=== PATIENT | male | born 2000 | race Hispanic/Latino ===

== ENCOUNTER 2024-07-06 14:48 | Inpatient (IN) | payer SELFPAY ==
[2024-07-06] MEDS ORDERED: cloNIDine HCL 0.1 MG TAB ONE (15:16)
[2024-07-06 15:27] LABS: Absolute Basophils 0.1 K/uL (0-0.5); Absolute Eosinophils 0.1 K/uL (0-0.5); Absolute Lymphocytes (CBC) 2.3 K/uL (0.7-4.9); Absolute Monocytes 0.8 K/uL (0.1-1.3); Absolute Neutrophil 4.8 K/uL (1.8-8.0); Basophils % 0.7 % (0-1.3); Eosinophils % 0.7 % (0-4.4); Hematocrit 44.8 % (39.6-49.0); Hemoglobin 15.4 g/dL (13.6-17.9); Lymphocytes % 28.6 % (15.3-44.8); MCH 30.7 pg (27.0-35.0); MCHC 34.4 g/dL (32.0-36.0); MCV 89.4 fL (80-100); MPV 10.1 fL (7.6-11.3); Monocytes % 10.3 % (3.3-12.3); Neutrophils % 59.7 % (41.7-73.7); Platelets 247 thou/uL (152-406); RBC Red Blood Cell Count 5.01 M/uL (4.33-5.43)
[2024-07-06 15:34] LABS: PTT, Activated Partial Thromb 36.2 SECONDS (24.3-36.9)
--- NOTE | 2024-07-06 15:34 | RAD REPORT ---
EXAM: Ct Stroke Brain Wo Cont HISTORY: STROKE ALERT COMPARISON: None TECHNIQUE: Multiple contiguous axial images were obtained for a CT of the brain without contrast. Sag ittal and coronal reformats were performed. One or more of the following dose reduction techniques were used: Automated exposure control, adjus tment of the mA and kV according to patient size, and iterative reconstruction. Unless otherwise specified, incidental findings do not require dedicated imaging follow-up. FINDINGS: No evidence of hydrocephalus, intracranial hemorrhage, or extra-axial fluid collection. The brain is normal in morphology. The calvarium is intact. The visualized paranasal sinuses and mastoid air cells are essentially clear . IMPRESSION: No evidence of acute intracranial abnormality. THIS REPORT CONTAINS FINDINGS THAT MAY BE CRITICAL TO PATIENT CARE. The findings were verbally commun icated via telephone to Jacob Wayne MD on 07/06/2024 3:29PM.
[2024-07-06] MEDS ORDERED: LABETALOL 20 MG/4ML SYRINGE IV ONE (15:38)
--- NOTE | 2024-07-06 15:45 | RAD REPORT ---
EXAMINATION: Neck Angio CLINICAL INDICATION: Male, 24 years old. BR MAIN left arm tingling TECHNIQUE: Axial CT images were obtained from the aortic arch to the skull base after intravenous con trast utilizing angiographic protocol. Multiplanar reformats, as well as 3D post-processing (maximum intensity projection images, volume rendered images and/or shaded surface rendered images) w ere generated and reviewed. One or more of the following dose reduction techniques were used: Automated exposure control, adjustment of the mA and/or kV according to patient size, and/or iterativ e reconstruction. Unless otherwise specified, incidental findings do not require dedicated imaging follow-up. COMPARISON: No prior exam. FINDINGS: AORTA: The imaged aortic arch is normal. Normal three-vessel configuration of the arch. CCA: The common carotid arteries are patent and normal in caliber. ICA/ECA: Bilateral internal and external carotid arteries are patent. There is no significant interna l carotid artery stenosis. VERTEBRAL: The cervical vertebral arteries are patent to the skull base. Vertebral arteries are codom inant. SOFT TISSUE: No significant neck soft tissue abnormalities. The visualized lung apices are clear. 3D images confirm these findings. IMPRESSION: No significant flow abnormality of the neck vessels is identified. NASCET criteria used to quantify ICA stenosis, with the following grading scheme: Mild 0-49% stenosis Moderate 50-69% stenosis Severe 70-99% stenosis Reference: [place] Symptomatic Carotid Endarterectomy Trial Collaborators; Darron FIGUEREDO, Aurora CENTENO, Gabbi RB, et al. Beneficial effect of carotid endarterectomy in symptomatic patients with high-grade carotid stenosis. N Engl J Med. 1990May 07;325(7):445-53.
[2024-07-06] MEDS ORDERED: TENECTEPLASE 50 MG/10 ML VIAL IV ONE (15:46)
--- NOTE | 2024-07-06 15:46 | RAD REPORT ---
EXAMINATION: CTA HEAD CLINICAL INDICATION: Male, 24 years old. LT ARM WEAKNESS TECHNIQUE: Axial CT images were obtained through the head after intravenous contrast utilizing angiog raphic protocol with 3D post-processing (maximum intensity projection images, volume rendered images and/or shaded surface rendered images). One or more of the following dose reduction technique s were used: Automated exposure control, adjustment of the mA and/or kV according to patient size, and/or iterative reconstruction. Unless otherwise specified, incidental findings do not require dedic ated imaging follow-up. COMPARISON: No prior exam. FINDINGS: ICA: The petrous, cavernous, and supraclinoid segments of the bilateral internal carotid arteries are normal. The ophthalmic artery origins are visualized and normal. The posterior communicating arteries are patent. C[place]: Anterior cerebral arteries are normal bilaterally. The anterior communicating artery is patent. MCA: Middle cerebral arteries are normal bilaterally. CLINICAL NURSE OCCUPATIONAL MEDICINE: Posterior cerebral arteries are normal bilaterally. Vertebrobasilar: The vertebral arteries are patent. The basilar artery is normal in appearance. 3D images confirm these findings. IMPRESSION: Normal head CTA.
[2024-07-06 15:48] LABS: Anion Gap 8.1 mEq/L (5.0-15.0); Potassium 4.1 mEq/L (3.5-5.1); Troponin High Sensitivity 3.6 pg/mL (<58.9)
[2024-07-06 15:49] LABS: PT Prothrombin Time 11.1 SECONDS (9.4-12.5); Protime INR 0.99
[2024-07-06] MEDS ORDERED: LORazepam 2 MG/ML VIAL ONE ×2 (15:59→16:50)
--- NOTE | 2024-07-06 16:29 | EDPHYS ---
Physician Documentation [facility] Name: Hernando Harman Age: 24 yrs Sex: Male : 2000 Arrival Date: 07/06/2024 Time: 14:48 Bed 25 Private MD: ED Physician Jacob Wayne HPI: 07/06 15:16 This 24 yrs old Male presents to ER via Unassigned with complaints of Arm Problem - rn left numbness, Headache, Facial tingles. 15:17 The patient's problem is reported as paresthesias, in left upper extremity, in left rn lower extremity, in left side of face. Onset: The symptoms/episode began/occurred 1 hour(s) ago. Associated signs and symptoms: Pertinent positives: headache, numbness, tingling, Pertinent negatives: weakness. Severity of symptoms: At their worst the symptoms were moderate in the emergency department the symptoms are unchanged. Patient reports was at work, began to feel anxious and "not right". Reports noticed left arm and left leg tingling as well as left facial tingling. No weakness. States has happened once before and was attributed to hypertension. Supposed to take lisinopril/HCTZ, does not take it because does not like to be on medication. Denies any chest pain or shortness of breath. No trauma or head injury. Denies any weakness. No dizziness. No vision changes. No slurred speech.. Historical: - Allergies: 15:48 No Known Allergies; tm6 - PMHx: 15:48 Hypertensive disorder; Asthma; tm6 - PSHx: 15:48 None; tm6 - Immunization history:: Client reports having NOT received the Covid vaccine. - Infectious Disease History:: Denies. - Family history:: not pertinent. - Social history:: Smoking status: Patient denies any tobacco usage or history of. Patient uses alcohol, on a daily basis. - Hospitalizations: : No recent hospitalization is reported. ROS: 15:17 Constitutional: Negative for fever, chills, and weight loss, Eyes: Negative for injury, rn pain, redness, and discharge, Neck: Negative for injury, pain, and swelling, Cardiovascular: Negative for chest pain, palpitations, and edema, Respiratory: Negative for shortness of breath, cough, wheezing, and pleuritic chest pain, Abdomen/GI: Negative for abdominal pain, nausea, vomiting, diarrhea, and constipation, Back: Negative for injury and pain, MS/Extremity: Negative for injury and deformity, Skin: Negative for injury, rash, and discoloration, Neuro: Positive for headache, positive for numbness and tingling to left side of body Exam: 15:17 Constitutional: This is a well developed, well nourished patient who is awake, alert, rn and in no acute distress. Head/Face: Normocephalic, atraumatic. Eyes: Pupils equal round and reactive to light, extra-ocular motions intact. Cardiovascular: Regular rate and rhythm. No pulse deficits. Respiratory: No increased work of breathing, no retractions or nasal flaring. MS/ Extremity: Pulses equal, no cyanosis. Neurovascular intact. Full, normal range of motion. Equal circumference. Neuro: Awake and alert, GCS 15, oriented to person, place, time, and situation. Cranial nerves II-XII grossly intact. Motor strength 5/5 in all extremities. Decreased sensation to the left side of face, slight decrease sensation to soft touch and painful stimuli of the left arm and left leg. Cerebellar exam normal. Normal gait. 16:08 ECG was reviewed by the Attending Physician. rn Vital Signs: 15:23 BP 162 / 101; Pulse 101; Resp 18; Pulse Ox 100% ; me1 15:44 BP 161 / 115; Pulse 98; me1 15:46 BP 151 / 99; Pulse 98; Resp 17; Pulse Ox 99% ; me1 15:51 Weight 86.8 kg; me1 16:00 BP 146 / 99; Pulse 99; Resp 16; Pulse Ox 99% ; me1 16:13 BP 145 / 102; Pulse 95; Resp 16; Pulse Ox 97% ; me1 16:13 BP 146 / 99; rn 16:15 BP 142 / 95; Pulse 95; Resp 16; Pulse Ox 97% on R/A; me1 16:22 BP 142 / 95; rn 16:42 BP 151 / 95; Pulse 96; rn 16:45 BP 144 / 98; Pulse 101; Resp 16; Pulse Ox 97% ; me1 17:15 BP 151 / 102; Pulse 96; Resp 16; Pulse Ox 98% ; me1 17:30 BP 138 / 98; Pulse 94; Resp 18; Pulse Ox 100% ; me1 17:45 BP 139 / 93; Pulse 87; Resp 16; Pulse Ox 98% ; me1 18:00 BP 134 / 94; Pulse 82; Resp 19; Pulse Ox 96% ; me1 18:15 BP 140 / 86; Pulse 85; Resp 19; Temp 98.4; Pulse Ox 100% ; me1 18:35 BP 134 / 94; Pulse 92; Resp 16; Temp 98.4; Pulse Ox 100% ; me1 NIH Stroke Scale Scores: 15:00 NIHSS Score: 1 wa1 15:16 NIHSS Score: 1 rn 18:35 NIHSS Score: 0 [facility] [place]DM: 14:53 Medical Screening Exam initiated rn 15:21 ED course: Code stroke called by nursing staff, patient sent to CT to obtain CT head rn and CT angio head and neck. Patient is very hypertensive, diastolic blood pressure of 116 on initial vital signs. Clonidine ordered.. 15:46 ED course: Consulted Dr. Parks, states that because he has unilateral symptoms, rn young age, NIH score above 0 he recommends giving TNK the patient for possible CVA. Blood pressure has come down to a diastolic of 101. 5 mg labetalol ordered for additional control and TNK ordered after patient was consented. Family member in the room for consent as well as other nursing staff, patient verbally consents and signed consent. Patient understands risk of bleeding and other risks of TNK administration including life-threatening problems, , and requiring admission to the hospital.. 16:01 ED course: Ordered TNK administration per Dr. Parks's recommendation, there has been rn a delay in administration due to patient's hypertension, has come down a bit but has rebounded back over 100 diastolic. After further discussion with patient patient drinks 12-20 beers a day last drink was yesterday, likely also experiencing alcohol withdrawal further pushing up his blood pressure and causing tachycardia. IV Ativan ordered for partial withdrawal and will reevaluate his blood pressure. When his blood pressure is below 105 diastolic forearm multiple reads we will administer TNK.. 16:24 ED course: We now have 5 blood pressures in a row under diastolic of 105 over the last rn 24 minutes, patient has improved with Ativan and labetalol. Last blood pressure is 142/95, patient reports still feeling tingling on the left side of the body. Will administer TNK and closely monitor blood pressure.. 16:24 Differential diagnosis: CVA, TIA, metabolic disorder, Complicated migraine, alcohol rn withdrawal. TNKase (Tenecteplase) Screening: Indications: Definite evidence of stroke, ischemic, embolic, or hypertensive: Yes. Treatment will start within 4.5 hours onset of symptoms: Yes. No evidence of intracranial hemorrhage or CT of head and no evidence of peripheral hemorrhage or recent CVA: Yes. Consent for thrombolytic therapy: Yes. Data reviewed: vital signs, nurses notes, lab test result(s), EKG, radiologic studies, CT scan, and as a result, I will admit patient. Care significantly affected by the following chronic conditions: Hypertension. Counseling: I had a detailed discussion with the patient and/or guardian regarding the historical points, exam findings, and any diagnostic results supporting the discharge/admit diagnosis, lab results, radiology results, the need for further work-up and treatment in the hospital. ED course: I personally spent 35 minutes engaged in work directly related to the individual patient's care. This does not include any time spent performing procedures. The patient has been deemed critically ill because of possibility of acute cerebral infarct, hypertension requiring multiple IV doses of medication for control in anticipation of TNK administration, TNK administration and organization of hospitalization. 16:51 ED course: Patient states still feels anxious, overall vital signs have improved as rn well as numbness after TNK and Ativan administration, will give 0.5 mg Ativan IV to obtain MRI given patient reports feels claustrophobic. Patient drinks 12-20 beers a day, can easily handle 1.5 mg of Ativan.. 17:38 ED course: Tingling has resolved. Current repeat NIH is 0. rn 07/06 15:06 Order name: Basic Metabolic Panel; Complete Time: 15:54 rn 07/06 15:06 Order name: CBC with Diff; Complete Time: 15:54 rn 07/06 15:06 Order name: High Sensitivity Troponin; Complete Time: 15:54 rn 07/06 15:06 Order name: Protime (+inr); Complete Time: 15:54 rn 07/06 15:06 Order name: Ptt, Activated; Complete Time: 15:54 rn 07/06 15:46 Order name: Glucose, Ancillary Testing; Complete Time: 15:54 EDMS 07/06 16:43 Order name: LFT's; Complete Time: 17:08 la1 07/06 15:06 Order name: CT Neck Angio; Complete Time: 15:54 rn 07/06 15:06 Order name: CT Stroke Brain w/o Contrast rn 07/06 15:12 Order name: Head angio; Complete Time: 15:54 EDMS 07/06 17:19 Order name: Brain Wo Cont EDMS 07/06 15:06 Order name: Accucheck; Complete Time: 16:21 rn 07/06 15:06 Order name: Cardiac monitoring; Complete Time: 15:40 rn 07/06 15:06 Order name: EKG - Nurse/Tech; Complete Time: 15:40 rn 07/06 15:06 Order name: IV Saline Lock; Complete Time: 15:26 rn 07/06 15:06 Order name: Labs collected and sent; Complete Time: 15:26 rn 07/06 15:06 Order name: O2 Per Protocol; Complete Time: 15:26 rn 07/06 15:06 Order name: O2 Sat Monitoring; Complete Time: 15:26 rn 07/06 15:06 Order name: Stroke Swallow Screen; Complete Time: 15:26 rn EC:08 Rate is 107 beats/min. Rhythm is regular. QRS [place] is Normal. IA interval is normal. rn QRS interval is normal. QT interval is normal. No Q waves. T waves are Normal. No ST changes noted. Clinical impression: Sinus tachycardia. Interpreted by me. Reviewed by me. Administered Medications: 15:24 Drug: cloNIDine PO 0.1 mg PO once Route: PO; hb 16:03 Follow up: Response: No adverse reaction; Blood pressure is lowered me1 15:40 Drug: Labetalol IV 5 mg IV at calculated rate once Route: IV; Rate: calculated rate; me1 Site: right antecubital; 16:38 Follow up: Response: No adverse reaction; Blood pressure is lowered; IV Status: me1 Completed infusion 15:56 Drug: Labetalol IV 5 mg IV at calculated rate once Route: IV; Rate: calculated rate; me1 Site: right antecubital; 16:38 Follow up: Response: Blood pressure is lowered; IV Status: Completed infusion me1 16:03 Drug: Ativan IVP 1 mg IVP once Route: IVP; Site: right antecubital; me1 16:39 Follow up: Response: No adverse reaction; Anxiety decreased me1 16:30 Drug: TNK FOR STROKE - Tenecteplase IV (Administer 10 ml NS flush BEFORE and me1 AFTER tenecteplase) 0.25 mg/kg IV at per protocol once; 0.25mg/kg, MAX DOSE 25 mg, IVP over 5 seconds {Co-Signature: hb (Winsome Lawrence RN).} Route: IV; Rate: per protocol; Site: left antecubital; 16:54 Follow up: IV Status: Completed infusion me1 16:54 Drug: Ativan IVP 0.5 mg IVP once Route: IVP; Site: right antecubital; me1 17:18 Follow up: Response: No adverse reaction; Anxiety decreased me1 Disposition Summary: 07/06/24 16:28 Hospitalization Ordered Notes: Hospitalization Status: Inpatient Admission rn Provider: Aron Wayne rn Location: Intensive Care Unit rn Condition: Stable rn Problem: new rn Symptoms: have improved rn Bed/Room Type: Standard rn Room Assignment: 2-(07/06/24 18:09) am7 Diagnosis - Paresthesia of skin rn - Alcohol dependence with withdrawal, unspecified rn - Essential (primary) hypertension rn Forms: - Medication Reconciliation Form rn - SBAR form rn - Leadership Thank You Letter pattern checker time excluding procedures: 16:24 Critical care time: Bedside Care: 30 minutes, Consultation: 5 minutes. Total time: 35 rn minutes NIH Stroke Scale - NIH Stroke Score Date: 07/06/2024 Time: 15:00 Total Score = 1 10. Dysarthria (speech clarity - read or repeat words) - 0(Normal) 11. Extinction and Inattention (visual/tactile/auditory/spatial/personal) - 0(No abnormality) 1a. Level of Consciousness (LOC) - 0(Alert) 1b. Level of Consciousness (LOC) (Month \\T\\ Age) - 0(Both) 1c. LOC Commands (Open \\T\\ Closes Eyes/Size Cutter) - 0(Both) 2. Best Gaze (Lateral Gaze Paresis) - 0(Normal) 3. Visual Field Loss - 0(No visual loss) 4. Facial Palsy - 0(Normal) 5a. Left Arm: Motor (10-second hold) - 0(No drift) 5b. Right Arm: Motor (10-second hold) - 0(No drift) 6a. Left Leg: Motor (5-second hold - always test supine) - 0(No drift) 6b. Right Leg: Motor (5-second hold - always test supine) - 0(No drift) 7. Limb Ataxia (finger/nose \\T\\ heel/reddy - test with eyes open) - 0(Absent) 8. Sensory Loss (pinprick arms/legs/face) - 1(Mild to moderate loss) 9. Best Language: Aphasia (description/naming/reading) - 0(No aphasia) Initials: me1 NIH Stroke Scale - NIH Stroke Score Date: 07/06/2024 Time: 15:16 Total Score = 1 10. Dysarthria (speech clarity - read or repeat words) - 0(Normal) 11. Extinction and Inattention (visual/tactile/auditory/spatial/personal) - 0(No abnormality) 1a. Level of Consciousness (LOC) - 0(Alert) 1b. Level of Consciousness (LOC) (Month \\T\\ Age) - 0(Both) 1c. LOC Commands (Open \\T\\ Closes Eyes/Size Cutter) - 0(Both) 2. Best Gaze (Lateral Gaze Paresis) - 0(Normal) 3. Visual Field Loss - 0(No visual loss) 4. Facial Palsy - 0(Normal) 5a. Left Arm: Motor (10-second hold) - 0(No drift) 5b. Right Arm: Motor (10-second hold) - 0(No drift) 6a. Left Leg: Motor (5-second hold - always test supine) - 0(No drift) 6b. Right Leg: Motor (5-second hold - always test supine) - 0(No drift) 7. Limb Ataxia (finger/nose \\T\\ heel/reddy - test with eyes open) - 0(Absent) 8. Sensory Loss (pinprick arms/legs/face) - 1(Mild to moderate loss) 9. Best Language: Aphasia (description/naming/reading) - 0(No aphasia) Initials: rn NIH Stroke Scale - NIH Stroke Score Date: 07/06/2024 Time: 18:35 Total Score = 0 10. Dysarthria (speech clarity - read or repeat words) - 0(Normal) 11. Extinction and Inattention (visual/tactile/auditory/spatial/personal) - 0(No abnormality) 1a. Level of Consciousness (LOC) - 0(Alert) 1b. Level of Consciousness (LOC) (Month \\T\\ Age) - 0(Both) 1c. LOC Commands (Open \\T\\ Closes Eyes/Size Cutter) - 0(Both) 2. Best Gaze (Lateral Gaze Paresis) - 0(Normal) 3. Visual Field Loss - 0(No visual loss) 4. Facial Palsy - 0(Normal) 5a. Left Arm: Motor (10-second hold) - 0(No drift) 5b. Right Arm: Motor (10-second hold) - 0(No drift) 6a. Left Leg: Motor (5-second hold - always test supine) - 0(No drift) 6b. Right Leg: Motor (5-second hold - always test supine) - 0(No drift) 7. Limb Ataxia (finger/nose \\T\\ heel/reddy - test with eyes open) - 0(Absent) 8. Sensory Loss (pinprick arms/legs/face) - 0(Normal) 9. Best Language: Aphasia (description/naming/reading) - 0(No aphasia) Initials: me1 Signatures: Dispatcher [employer] EDMS Jacob Wayne MD MD rn Baxter, Heather, RN RN Elissa Kramer RN RN me1 Hailee Mujica RN RN tm6 Pinky Fishman am7 Winsome Lawrence RN hb Corrections: (The following items were deleted from the chart) 15:06 15:06 Neck Angio+CT.RAD.BRZ ordered. EDMS EDMS 15:06 15:06 CT-STROKE BRAIN W/O CONTRAST+CT.RAD.BRZ ordered. EDMS EDMS 16:44 16:44 HEPATIC FUNCTION+C.LAB.BRZ ordered. EDMS EDMS 17:19 15:35 Brain With Cont ordered. EDMS EDMS 18:09 16:28 rn am7
--- NOTE | 2024-07-06 16:29 | ER ---
Nurse's Notes [facility] Name: Hernando Harman Age: 24 yrs Sex: Male : 2000 Arrival Date: 07/06/2024 Time: 14:48 Bed 25 Private MD: Diagnosis: Paresthesia of skin;Alcohol dependence with withdrawal, unspecified;Essential (primary) hypertension Presentation: 07/06 14:56 Chief complaint: Patient states: about 1 hour ago I got left arm numbness, left foot tm6 numbness, and the left side of my face (episcopal area) started to tingle. About 30 min ago my head started to hurt. Coronavirus screen: Client denies travel out of the [place] in the last 14 days. Ebola Screen: Patient negative for fever greater than or equal to 101.5 degrees Fahrenheit, and additional compatible Ebola Virus Disease symptoms Patient denies exposure to infectious person. Patient denies travel to an Ebola-affected area in the 21 days before illness onset. No symptoms or risks identified at this time. Initial Sepsis Screen: Does the patient meet any 2 criteria? No. Patient's initial sepsis screen is negative. Does the patient have a suspected source of infection? No. Patient's initial sepsis screen is negative. Risk Assessment: Do you want to hurt yourself or someone else? Patient reports no desire to harm self or others. Onset of symptoms was July 06, 2024 at 13:00. 14:56 Method Of Arrival: Ambulatory tm6 14:56 Acuity: HORACIO 2 tm6 Triage Assessment: 14:56 Headache History: The patient has had previous headaches. General: Appears in no tm6 apparent distress. Behavior is calm, cooperative. Pain: Complains of pain in head Pain currently is 5 out of 10 on a pain scale. Pain began 30 min ago. Also complains of no other associated symptoms. EENT: No signs and/or symptoms were reported regarding the EENT system. Neuro: Level of Consciousness is awake, alert, obeys commands, Oriented to person, place, time, situation, Reports headache since 1330 numbness in left foot and left arm since 1300 paresthesias in left episcopal since 1300. Cardiovascular: Patient's skin is warm and dry. Respiratory: Airway is patent Respiratory effort is even, unlabored, Respiratory pattern is regular, symmetrical. GI: No signs and/or symptoms were reported involving the gastrointestinal system. Abdomen is flat, non-distended. : No signs and/or symptoms were reported regarding the genitourinary system. Derm: No signs and/or symptoms reported regarding the dermatologic system. Musculoskeletal: Reports numbness in left foot and left arm since 1300. Historical: - Allergies: 15:48 No Known Allergies; tm6 - PMHx: 15:48 Hypertensive disorder; Asthma; tm6 - PSHx: 15:48 None; tm6 - Immunization history:: Client reports having NOT received the Covid vaccine. - Infectious Disease History:: Denies. - Family history:: not pertinent. - Social history:: Smoking status: Patient denies any tobacco usage or history of. Patient uses alcohol, on a daily basis. - Hospitalizations: : No recent hospitalization is reported. Screenin:00 [facility] ED Fall Risk Assessment (Adult) History of falling in the last 3 months, me1 including since admission No falls in past 3 months (0 pts) Confusion or Disorientation No (0 pts) Intoxicated or Sedated No (0 pts) Impaired Gait No (0 pts) Mobility Assist Device Used No (0 pt) Altered Elimination No (0 pt) Score/Fall Risk Level 0 - 2 = Low Risk Maintained a safe environment, Provided non-skid footwear, Hourly rounding (assess needs \T\ fall precautionary measures) done. Abuse screen: Denies threats or abuse. Nutritional screening: No deficits noted. Tuberculosis screening: No symptoms or risk factors identified. 15:00 VAN Screening: Arm Drift: Patient shows no arm weakness. Patient is VAN negative. me1 Visual Disturbance: No visual disturbance noted. Aphasia: No aphasia noted. Neglect: No neglect noted. 15:20 [place] Swallow Protocol Exclusion Criteria: Unable to remain alert for testing: No NPO me1 for medical/surgical reason by provider order No Tracheostomy tube present No No thin liquids due to preexisting dysphagia/baseline modified diet thickened liquids No Brief Cognitive Screen What is your name? Normal, Where are you right now? Normal, What year is it? Normal. Oral Mechanism Examination Facial Symmetry: Normal, Motion: Normal, Lip Closure: Normal, Oral Mechanism Result: Normal. 3 oz Water Swallow Challenge: Pt able to drink all water without stopping, coughing, choking or throat clearing: Yes Result: CAREY MILLS Notified: Jacob Wayne MD. Assessment: 15:00 General: Appears comfortable, well groomed, well developed, well nourished, Behavior is me1 calm, cooperative, appropriate for age, Reports headache, left sided facial tingles and L arm and L leg tingles. Pain: Complains of pain in face Pain does not radiate. Pain currently is 4 out of 10 on a pain scale. Quality of pain is described as aching, Pain began gradually, Is continuous. Neuro: Level of Consciousness is awake, alert, obeys commands, Oriented to person, place, time, situation, Appropriate for age Flexboard Operator are equal bilaterally Moves all extremities. Full function Gait is steady, Speech is normal, Facial symmetry appears normal, Pupils are PERRLA, Pupil Size: 3 Tingling in left side of head, left arm and left leg Reports headache in left tingling to left face, left arm and left leg. Cardiovascular: Patient's skin is warm and dry. Respiratory: Airway is patent Respiratory effort is even, unlabored, Respiratory pattern is regular, symmetrical. GI: No signs and/or symptoms were reported involving the gastrointestinal system. : No signs and/or symptoms were reported regarding the genitourinary system. EENT: No signs and/or symptoms were reported regarding the EENT system. Derm: Skin is intact, is healthy with good turgor, Skin is pink, warm \T\ dry. Musculoskeletal: Reports tingling to left arm and left leg. 15:05 Reassessment: CODE STROKE CALLED, PT TO CT VIA STRETCHER WITH ELISSA AVILA. hb 15:20 [place] Swallow Protocol Exclusion Criteria: Unable to remain alert for testing: No NPO me1 for medical/surgical reason by provider order No Head-of-bed restricted <30 degrees Tracheostomy tube present No No thin liquids due to preexisting dysphagia/baseline modified diet thickened liquids No Exclusion Criteria Result: Proceed Brief Cognitive Screen What is your name? Normal, Where are you right now? Normal, What year is it? Normal. Oral Mechanism Examination Facial Symmetry: Normal, Motion: Normal, Lip Closure: Normal, 3 oz Water Swallow Challenge: Pt able to drink all water without stopping, coughing, choking or throat clearing: Yes Result: CAREY MILLS Notified: Jacob Wayne MD. TNKase (Tenecteplase) Screening: Indications: Definite evidence of stroke, ischemic, embolic, or hypertensive: Yes. Treatment will start within 4.5 hours onset of symptoms: Yes. No evidence of intracranial hemorrhage or CT of head and no evidence of peripheral hemorrhage or recent CVA: No. Consent for thrombolytic therapy: Yes. Contraindications:. Vital Signs: 15:23 BP 162 / 101; Pulse 101; Resp 18; Pulse Ox 100% ; me1 15:44 BP 161 / 115; Pulse 98; me1 15:46 BP 151 / 99; Pulse 98; Resp 17; Pulse Ox 99% ; me1 15:51 Weight 86.8 kg; me1 16:00 BP 146 / 99; Pulse 99; Resp 16; Pulse Ox 99% ; me1 16:13 BP 145 / 102; Pulse 95; Resp 16; Pulse Ox 97% ; me1 16:13 BP 146 / 99; rn 16:15 BP 142 / 95; Pulse 95; Resp 16; Pulse Ox 97% on R/A; me1 16:22 BP 142 / 95; rn 16:42 BP 151 / 95; Pulse 96; rn 16:45 BP 144 / 98; Pulse 101; Resp 16; Pulse Ox 97% ; me1 17:15 BP 151 / 102; Pulse 96; Resp 16; Pulse Ox 98% ; me1 17:30 BP 138 / 98; Pulse 94; Resp 18; Pulse Ox 100% ; me1 17:45 BP 139 / 93; Pulse 87; Resp 16; Pulse Ox 98% ; me1 18:00 BP 134 / 94; Pulse 82; Resp 19; Pulse Ox 96% ; me1 18:15 BP 140 / 86; Pulse 85; Resp 19; Temp 98.4; Pulse Ox 100% ; me1 18:35 BP 134 / 94; Pulse 92; Resp 16; Temp 98.4; Pulse Ox 100% ; me1 NIH Stroke Scale Scores: 15:00 NIHSS Score: 1 me1 15:16 NIHSS Score: 1 rn 18:35 NIHSS Score: 0 ky1 ED Course: 14:50 Patient arrived in ED. im 14:53 Jacob Wayne MD is Attending Physician. rn 14:56 Arm band placed on right wrist. tm6 15:00 No provider procedures requiring assistance completed. me1 15:00 Patient has correct armband on for positive identification. Bed in low position. Call [facility] [place] in reach. Side rails up X 1. Provided Education on: POC. Verbalized understanding. . Client placed on continuous cardiac and pulse oximetry monitoring. NIBP monitoring applied. hall monitor on. Pulse ox on. NIBP on. 15:13 Initial lab(s) drawn, by me, sent to lab. Inserted saline lock: 22 gauge in right me1 antecubital area, using aseptic technique. 15:17 CT Stroke Brain w/o Contrast In Process Unspecified. EDMS 15:24 CT Neck Angio In Process Unspecified. EDMS 15:24 Head angio In Process Unspecified. EDMS 15:25 Elissa Kramer, RN is Primary Nurse. me1 15:26 Basic Metabolic Panel Sent. me1 15:26 CBC with Diff Sent. me1 15:26 High Sensitivity Troponin Sent. me1 15:26 Protime (+inr) Sent. me1 15:26 Ptt, Activated Sent. me1 15:41 EKG done, by ED staff, reviewed by Jacob Wayne MD. me1 15:48 Triage completed. tm6 15:56 Inserted saline lock: 20 gauge in left antecubital area, using aseptic technique. me1 16:28 Aron Wayne MD is Hospitalizing Provider. rn 16:54 LFT's Sent. me1 16:55 Patient moved to MRI via wheelchair. me1 17:19 Brain Wo Cont In Process Unspecified. EDMS 18:18 Patient admitted, IV remains in place. me1 Administered Medications: 15:24 Drug: cloNIDine PO 0.1 mg PO once Route: PO; hb 16:03 Follow up: Response: No adverse reaction; Blood pressure is lowered me1 15:40 Drug: Labetalol IV 5 mg IV at calculated rate once Route: IV; Rate: calculated rate; ky1 Site: right antecubital; 16:38 Follow up: Response: No adverse reaction; Blood pressure is lowered; IV Status: me1 Completed infusion 15:56 Drug: Labetalol IV 5 mg IV at calculated rate once Route: IV; Rate: calculated rate; ky1 Site: right antecubital; 16:38 Follow up: Response: Blood pressure is lowered; IV Status: Completed infusion me1 16:03 Drug: Ativan IVP 1 mg IVP once Route: IVP; Site: right antecubital; me1 16:39 Follow up: Response: No adverse reaction; Anxiety decreased me1 16:30 Drug: TNK FOR STROKE - Tenecteplase IV (Administer 10 ml NS flush BEFORE and me1 AFTER tenecteplase) 0.25 mg/kg IV at per protocol once; 0.25mg/kg, MAX DOSE 25 mg, IVP over 5 seconds {Co-Signature: jae (Winsome Lawrence RN).} Route: IV; Rate: per protocol; Site: left antecubital; 16:54 Follow up: IV Status: Completed infusion me1 16:54 Drug: Ativan IVP 0.5 mg IVP once Route: IVP; Site: right antecubital; me1 17:18 Follow up: Response: No adverse reaction; Anxiety decreased me1 Medication: 15:00 VIS not applicable for this client. me1 Outcome: 16:28 Decision to Hospitalize by Provider. rn 18:18 Admitted to ICU accompanied by nurse, via stretcher, room -2, on monitor, with chart, me1 Report called to AUSTIN Upton 18:18 Condition: stable 18:18 Instructed on the need for admit, 18:36 Patient left the ED. jae NIH Stroke Scale - NIH Stroke Score Date: 07/06/2024 Time: 15:00 Total Score = 1 10. Dysarthria (speech clarity - read or repeat words) - 0(Normal) 11. Extinction and Inattention (visual/tactile/auditory/spatial/personal) - 0(No abnormality) 1a. Level of Consciousness (LOC) - 0(Alert) 1b. Level of Consciousness (LOC) (Month \T\ Age) - 0(Both) 1c. LOC Commands (Open \T\ Closes Eyes/Blood Donor Recruiter Supervisor) - 0(Both) 2. Best Gaze (Lateral Gaze Paresis) - 0(Normal) 3. Visual Field Loss - 0(No visual loss) 4. Facial Palsy - 0(Normal) 5a. Left Arm: Motor (10-second hold) - 0(No drift) 5b. Right Arm: Motor (10-second hold) - 0(No drift) 6a. Left Leg: Motor (5-second hold - always test supine) - 0(No drift) 6b. Right Leg: Motor (5-second hold - always test supine) - 0(No drift) 7. Limb Ataxia (finger/nose \T\ heel/reddy - test with eyes open) - 0(Absent) 8. Sensory Loss (pinprick arms/legs/face) - 1(Mild to moderate loss) 9. Best Language: Aphasia (description/naming/reading) - 0(No aphasia) Initials: me1 NIH Stroke Scale - NIH Stroke Score Date: 07/06/2024 Time: 15:16 Total Score = 1 10. Dysarthria (speech clarity - read or repeat words) - 0(Normal) 11. Extinction and Inattention (visual/tactile/auditory/spatial/personal) - 0(No abnormality) 1a. Level of Consciousness (LOC) - 0(Alert) 1b. Level of Consciousness (LOC) (Month \T\ Age) - 0(Both) 1c. LOC Commands (Open \T\ Closes Eyes/Blood Donor Recruiter Supervisor) - 0(Both) 2. Best Gaze (Lateral Gaze Paresis) - 0(Normal) 3. Visual Field Loss - 0(No visual loss) 4. Facial Palsy - 0(Normal) 5a. Left Arm: Motor (10-second hold) - 0(No drift) 5b. Right Arm: Motor (10-second hold) - 0(No drift) 6a. Left Leg: Motor (5-second hold - always test supine) - 0(No drift) 6b. Right Leg: Motor (5-second hold - always test supine) - 0(No drift) 7. Limb Ataxia (finger/nose \T\ heel/reddy - test with eyes open) - 0(Absent) 8. Sensory Loss (pinprick arms/legs/face) - 1(Mild to moderate loss) 9. Best Language: Aphasia (description/naming/reading) - 0(No aphasia) Initials: rn NIH Stroke Scale - NIH Stroke Score Date: 07/06/2024 Time: 18:35 Total Score = 0 10. Dysarthria (speech clarity - read or repeat words) - 0(Normal) 11. Extinction and Inattention (visual/tactile/auditory/spatial/personal) - 0(No abnormality) 1a. Level of Consciousness (LOC) - 0(Alert) 1b. Level of Consciousness (LOC) (Month \T\ Age) - 0(Both) 1c. LOC Commands (Open \T\ Closes Eyes/Blood Donor Recruiter Supervisor) - 0(Both) 2. Best Gaze (Lateral Gaze Paresis) - 0(Normal) 3. Visual Field Loss - 0(No visual loss) 4. Facial Palsy - 0(Normal) 5a. Left Arm: Motor (10-second hold) - 0(No drift) 5b. Right Arm: Motor (10-second hold) - 0(No drift) 6a. Left Leg: Motor (5-second hold - always test supine) - 0(No drift) 6b. Right Leg: Motor (5-second hold - always test supine) - 0(No drift) 7. Limb Ataxia (finger/nose \T\ heel/reddy - test with eyes open) - 0(Absent) 8. Sensory Loss (pinprick arms/legs/face) - 0(Normal) 9. Best Language: Aphasia (description/naming/reading) - 0(No aphasia) Initials: ky1 Signatures: Dispatcher [employer] EDMS Jacob Wayne MD MD rn Baxter, Heather, RN RN Tracy Styles Michelle, RN RN ky1 Hailee Mujica RN RN [facility] Winsome Lawrence RN Corrections: (The following items were deleted from the chart) 16:21 16:13 BP 145 / 102; Pulse 95bpm; me1 ky1 16:37 14:56 Acuity: HORACIO 3 tm6 tm6
[2024-07-06 17:06] LABS: ALT/SGPT 121 U/L (16-61); AST/SGOT 60 U/L (15-37); Albumin 4.2 g/dL (3.4-5.0); Albumin/Globulin Ratio 1.1 (1.1-1.8); Alkaline Phosphatase 131 U/L (45-117); Bilirubin Direct < 0.2 mg/dL (0-0.2); Bilirubin Indirect, Calculated 0.2 mg/dL (0.2-0.8); Bilirubin Total 0.4 mg/dL (0.2-1.0); Globulin 3.9 g/dL (2.3-3.5); Protein, Total 8.1 g/dL (6.4-8.2)
--- NOTE | 2024-07-06 17:50 | P.HP ---
Certification for Inpatient Patient admitted to: Inpatient With expected LOS: >2 Midnights Patient will require the following post-hospital care: None Practitioner: I am a practitioner with admitting privileges, knowledge of patient current condition, hospital course, and medical plan of care. Services: Services provided to patient in accordance with Admission requirements found in Title 42 Section 412.3 of the Code of Federal Regulations Patient History Date of Service: 07/06/24 Reason for admission: Rule out CVA S/P TNK History of Present Illness: 24-year-old male with history of hypertension, alcohol use disorder presents the emergency department chief complaint of left-sided paresthesias/tingling which began around 1300 today associated with a headache. Was evaluated in the emergency department as labs are significant for AST of 60 ALT 121 alk phos 131 glucose [address] head without contrast as well as CTA of the head and neck were negative for acute findings. ED physician discussed case with neurology who recommended patient receive TNK. Initially patient's blood pressure was elevated which slightly delayed TNK but he was g iven labetalol and his blood pressure improved. TNK was administered at 1630. MRI has also been performed, pending result. Patient's NIH score is currently a 1, he has some decreased sensation to the left side of his face. He was previously having paresthesias decreased sensation to his left upper and lower extremity as well as the left side of his face. This has improved. Patient also admits to drinking around a 12 pack/day for the last year, cannot remember time he is gone more than a day or 2 without drinking. He was given 0.5 mg of Ativan in the ER, last drink was on 07/05/2024 at around 2300. - Past Medical/Surgical History -: hypertension -: none Psychosocial/ Personal History: Lives at home with family - Social History Alcohol use: Yes CD- Drugs: No Caffeine use: Yes Place of Residence: Home Review of Systems 10-point ROS is otherwise unremarkable Neurological: Numbness, As per HPI Physical Examination - Physical Exam General: Alert, In no apparent distress, Oriented x3 HEENT: Atraumatic, PERRLA, EOMI Neck: Supple, 2+ carotid pulse no bruit, No LAD, Without JVD or thyroid abnormality Respiratory: Clear to auscultation bilaterally, Normal air movement Cardiovascular: Regular rate/rhythm, Normal S1 S2 Gastrointestinal: Normal bowel sounds Musculoskeletal: No tenderness Integumentary: No rashes Neurological: Normal speech, Normal strength at 5/5 x4 extr, Normal tone, Other (NIH score is 1), Abnormal sensation (Decreased sensation/tingling to left side of face) - Studies Laboratory Data (last 24 hrs) 07/06/24 07/06/24 07/06/24 15:14 15:14 15:14 WBC 8.00 Hgb 15.4 Hct 44.8 Plt Count 247 PT 11.1 INR 0.99 APTT 36.2 Sodium Potassium BUN Creatinine Glucose Total Bilirubin 0.4 AST 60 H ALT 121 H Alkaline Phosphatase 131 H 07/06/24 15:14 WBC Hgb Hct Plt Count PT INR APTT Sodium 136 Potassium 4.1 BUN 10 Creatinine 0.98 Glucose 115 H Total Bilirubin AST ALT Alkaline Phosphatase Assessment and Plan - Plan Assessment: Paresthesias, decreased sensation left-sided/CVA S/P TNK Hypertensive urgency Alcohol use disorder Plan: Paresthesias, decreased sensation left-sided/CVA S/P TNK Hypertensive urgency Received TNK 07/06/[address] without contrast and angios negative for acute findings/LVO MRI pending NIH score 1 currently only with left facial decreased sensation/tingling Admit to ICU, never required Cardene drip for elevated blood pressures Maintain blood pressure less than 180/105 for 24 hours after TNK No aspirin/antiplatelet/anticoagulation until after 07/[address] head without contrast 1630 no difficulty with speech or ambulation, no consult for speech therapy or PT currently place Alcohol use disorder Alcohol withdrawal assessments As needed benzodiazepines Drink around 12 pack/day of beer last drink 07/05/2024 at 2300 Monitor LFTs daily DVT PPX: SCD-no aspirin, antiplatelet or anticoagulation until 07/07 after 1630, patient received TNK Code status: Full Discharge Plan: Home Plan to discharge in: 48 Hours - Advance Directives Does patient have a Living Will: No Does patient have a Durable POA for Healthcare: No - Code Status/Comfort Care Code Status Assessed: Yes (Full code) Critical Care: No Time Spent Managing Pts Care (In Minutes): 68
--- NOTE | 2024-07-06 18:16 | RAD REPORT ---
EXAMINATION: MRI BRAIN WITHOUT CONTRAST CLINICAL INDICATION: Male, 24 years old.[facility] N r/o stroke er 25 TECHNIQUE: Multiplanar multisequence MR images of the brain were obtained without intravenous contras t. Unless otherwise specified, incidental findings do not require dedicated imaging follow-up. COMPARISON: Head CT and CT angiogram of the same day FINDINGS: INTRACRANIAL: Midline structures are unremarkable. Diffusion-weighted images show no acute or early subacute infarction. No abnormal brain parenchymal signal. The ventricles are normal in size and morphology. No augmented susceptibility signal abnormality. There is no mass effect or midline shift. No abnormal extraaxial fluid collection. VASCULATURE: Normal signal voids in the larger intracranial arteries and dural venous sinuses. SINUSES: The paranasal sinuses and mastoid air cells are predominantly clear. BONE: The marrow signal pattern is within normal limits. IMPRESSION: No significant intracranial abnormalities.
[2024-07-06] MEDS ORDERED: HYDRALAZINE HCL 20 MG/ML VIAL IV PRN (19:18)
[2024-07-06] MEDS ORDERED: Nicardipine/NS 25 MG/250 ML KIT IV SCH (19:18)
[2024-07-06] MEDS ORDERED: ONDANSETRON 4 MG/2 ML VIAL IV PRN (19:18)
[2024-07-06] MEDS ORDERED: LORazepam 2 MG/ML VIAL IV PRN (19:18)
[2024-07-06] MEDS: ATORVASTATIN 20 MG TAB PO SCH (21:14)
[2024-07-07 00:41] VITALS: O2SAT 98
[2024-07-07 05:32] LABS: Absolute Basophils 0.1 K/uL (0-0.5); Absolute Eosinophils 0.2 K/uL (0-0.5); Absolute Lymphocytes (CBC) 2.7 K/uL (0.7-4.9); Absolute Monocytes 0.7 K/uL (0.1-1.3); Absolute Neutrophil 3.7 K/uL (1.8-8.0); Basophils % 1.1 % (0-1.3); Eosinophils % 2.3 % (0-4.4); Hematocrit 42.7 % (39.6-49.0); Hemoglobin 15.1 g/dL (13.6-17.9); Lymphocytes % 37.1 % (15.3-44.8); MCH 31.3 pg (27.0-35.0); MCHC 35.3 g/dL (32.0-36.0); MCV 88.7 fL (80-100); Monocytes % 9.4 % (3.3-12.3); Neutrophils % 50.1 % (41.7-73.7); Platelets 225 thou/uL (152-406); RBC Red Blood Cell Count 4.81 M/uL (4.33-5.43); Red Cell Distribution Width 12.9 % (12.1-15.2)
[2024-07-07 05:46] VITALS: BMI 29.9
[2024-07-07 06:42] LABS: ALT/SGPT 101 U/L (16-61); AST/SGOT 44 U/L (15-37); Albumin 3.5 g/dL (3.4-5.0); Albumin/Globulin Ratio 0.9 (1.1-1.8); Alkaline Phosphatase 98 U/L (45-117); Anion Gap 8.6 mEq/L (5.0-15.0); BUN Blood Urea Nitrogen 10 mg/dL (7-18); Bicarbonate 28 mEq/L (21-32); Bilirubin Total 0.8 mg/dL (0.2-1.0); Globulin 3.8 g/dL (2.3-3.5); Glomerular Filtration Rate 104 ml/min (=/>90); Glucose Level 97 mg/dL (74-106); HDL Cholesterol 38 mg/dL (40-60); Potassium 3.6 mEq/L (3.5-5.1); Protein, Total 7.3 g/dL (6.4-8.2); Sodium Level 137 mEq/L (136-145)
[2024-07-07 06:53] LABS: LDL, Direct 86 mg/dL (100-129)
[2024-07-07 08:23] LABS: Blood Morphology Comment NOT SEEN (NOT SEEN); Platelet Estimate ADEQ; White Blood Cell Scan OK (OK)
[2024-07-07] MEDS: FOLIC ACID 1 MG TABLET PO SCH (08:24)
[2024-07-07] MEDS: THIAMINE HCL 100 MG TABLET PO SCH (08:24)
--- NOTE | 2024-07-07 09:51 | RAD REPORT ---
EXAM: CT brain without contrast HISTORY: Numbness COMPARISON: July 06, 2024 TECHNIQUE: Multiple contiguous axial images were obtained and a CT of the brain without contrast. Sagittal and coronal reformats were performed. Automated exposure control, adjustment of the mA and/or kV according to patient size, and/or itera tive reconstruction. Unless otherwise specified, incidental findings do not require dedicated imaging follow-u FINDINGS: An intracranial bleed is not seen Ventricles are normal caliber No extra-axial fluid collection noted No significant hypodensity within the brain No fluid within the visualized sinuses or mastoids noted. IMPRESSION: No acute intracranial abnormality noted. If the patient's symptoms persist MRI of the brain would be recommended. Patient's nurse John notified 9:44 AM July 07, 2024
[2024-07-07 17:19] VITALS: BP 149/95; TEMP 97.5
--- NOTE | 2024-07-07 17:34 | RAD REPORT ---
EXAM: Head Brain Wo Cont HISTORY: Eval for bleeding s/p tnk COMPARISON: 07/07/2024 TECHNIQUE: Multiple contiguous axial images were obtained for a CT of the brain without contrast. Sag ittal and coronal reformats were performed. One or more of the following dose reduction techniques were used: Automated exposure control, adjus tment of the mA and kV according to patient size, and iterative reconstruction. Unless otherwise specified, incidental findings do not require dedicated imaging follow-up. FINDINGS: No evidence of hydrocephalus, intracranial hemorrhage, or extra-axial fluid collection. The brain is normal in morphology. The calvarium is intact. The visualized paranasal sinuses and mastoid air cells are essentially clear . IMPRESSION: No evidence of acute intracranial abnormality.
--- NOTE | 2024-07-07 18:16 | P.DS ---
Admission Date: 07/06/24 Discharge Date: 07/07/24 Disposition: ROUTINE DISCHARGE Discharge Condition: FAIR Reason for Admission: Rule out CVA S/P TNK Brief History of Present Illness: 24-year-old male with history of hypertension, alcohol use disorder presented to the emergency department with chief complaint of left-sided paresthesias/tingling and headache. Was evaluated in the emergency department and labs were significant for AST of 60 ALT 121 alk phos 131 glucose [address] head without contrast as well as CTA of the head and neck were negative for acute findings. ED physician discussed case with neurology who recommended patient receive TNK given his symptoms were within the window period for thrombolysis. Ptient's blood pressure was elevated which slightly delayed TNK but he was given labetalol and his blood pressure improved. TNK was administered at 1630. MRI of the brain was done, patient NIHSS score was 1. He admitted that he drinks to about 12 cans of drinks per day for the past 1 year and cannot remember time he is gone more than a day or 2 without drinking. Patient was hospitalized for further stroke workup. Hospital Course: Diagnosis Alcohol-related neuropathy Hypertriglyceridemia Essential hypertension Elevated LFT Patient was admitted to the ICU for close monitoring after TNKase. Patient reported his arm numbness got better, he had limb weakness, no trouble with swallowing or speech and did not require evaluation by rehab services. MRI of the brain was negative and did not show any acute intracranial disease. He complained of heaviness in the left eye and some numbness left half of the face. Repeat CT head was negative. 24-hour repeat CT head did not show any acute disease or bleed. Acute stroke ruled out, lipid profile shows LDL at 86 and significantly elevated triglyceride of 547. Patient prescribed Lipitor and Tricor. His blood pressure overall is moderately elevated. Patient stated he was previously diagnosed with hypertension and placed on an antihypertensive. He does not remember the name of the antihypertensive he used to take. Patient is prescribed amlodipine 5 mg daily for his hypertension. He is informed to establish care with a PCP who will monitor his blood pressure and his other medical risk factors. Patient needs outpatient follow-up for elevated LFT. Vital Signs/Physical Exam: Temp Pulse Resp BP Pulse Ox 97.5 F 68 16 149/95 H 98 07/07/24 17:00 07/07/24 17:00 07/07/24 17:00 07/07/24 17:00 07/07/24 17:00 General: Alert, In no apparent distress, Oriented x3 HEENT: Atraumatic, Mucous membr. moist/pink, Sclerae nonicteric Neck: Supple, JVD not distended Respiratory: Clear to auscultation bilaterally, Normal air movement Cardiovascular: No edema, Regular rate/rhythm, Normal S1 S2 Gastrointestinal: Normal bowel sounds, Soft and benign, Non-distended, No tenderness Musculoskeletal: No swelling Integumentary: No rashes, No cyanosis Neurological: Normal strength at 5/5 x4 extr Laboratory Data at Discharge: WBC 7.30 thou/uL (4.3-10.9) 07/07/24 05:05 Hgb 15.1 g/dL (13.6-17.9) 07/07/24 05:05 Hct 42.7 % (39.6-49.0) 07/07/24 05:05 Plt Count 225 thou/uL (152-406) 07/07/24 05:05 PT 11.1 SECONDS (9.4-12.5) 07/06/24 15:14 INR 0.99 07/06/24 15:14 APTT 36.2 SECONDS (24.3-36.9) 07/06/24 15:14 Sodium 137 mEq/L (136-145) 07/07/24 05:05 Potassium 3.6 mEq/L (3.5-5.1) 07/07/24 05:05 BUN 10 mg/dL (7-18) 07/07/24 05:05 Creatinine 1.02 mg/dL (0.70-1.30) 07/07/24 05:05 Glucose 97 mg/dL (74-106) 07/07/24 05:05 Total Bilirubin 0.8 mg/dL (0.2-1.0) 07/07/24 05:05 AST 44 U/L (15-37) H 07/07/24 05:05 ALT 101 U/L (16-61) H 07/07/24 05:05 Alkaline Phosphatase 98 U/L (45-117) D 07/07/24 05:05 Triglycerides 547 mg/dL (<150) H 07/07/24 05:05 Cholesterol 174 mg/dL (<200) 07/07/24 05:05 LDL Cholesterol Direct 86 mg/dL (100-129) L 07/07/24 05:05 HDL Cholesterol 38 mg/dL (40-60) L 07/07/24 05:05 Cholesterol/HDL Ratio 4.58 07/07/24 05:05 Home Medications: Amlodipine [Norvasc*] 5 mg PO DAILY #30 tab 07/07/24 Aspirin [Aspirin EC 81 MG] 81 mg PO DAILY #30 tab 07/07/24 Atorvastatin Calcium [Lipitor*] 40 mg PO BEDTIME #30 tab 07/07/24 Fenofibrate [Tricor] 48 mg PO DAILY #30 tab 07/07/24 Folic Acid 1 mg PO DAILY #30 tab 07/07/24 Thiamine HCl [Vitamin B-1*] 100 mg PO DAILY #30 tab 07/07/24 New Medications: Aspirin [Aspirin EC 81 MG] 81 mg PO DAILY #30 tab Folic Acid 1 mg PO DAILY #30 tab Atorvastatin Calcium [Lipitor*] 40 mg PO BEDTIME #30 tab Amlodipine [Norvasc*] 5 mg PO DAILY #30 tab Fenofibrate [Tricor] 48 mg PO DAILY #30 tab Thiamine HCl [Vitamin B-1*] 100 mg PO DAILY #30 tab Physician Discharge Instructions: PROBLEM:stroke education Please note complications from alcohol abuse includes peripheral neuropathy, hypertension, falls with life-threatening injuries and increased risk of stroke. Alcohol cessation advised. GOAL: Clear understanding of disease process INSTRUCTIONS:Find a Primary Care provider, avoid excessive alcohol use. Take medications as presecribed. Diet: AHA Activity: Ad ramo DME DME: Date Ordered: Name of Company: [employer] Services Needed: None Name of Company: Date or Referral: IMMUNIZATION Influenza Vaccine Indicated: No Influenza Vaccine Given: Date Given: Pneumonia Vaccine Indicated: No Pneumonia Vaccine Given: Date Given: Diet: AHA Activity: Ad ramo Followup: NONE,NONE [Primary Care Provider] - (2-4 weeks) Time spent managing pt's care (in minutes): 32
--- NOTE | 2024-07-08 07:26 | ECHO ---
HEIGHT: 5 ft 7 in WEIGHT: 191 lb 0 oz DATE OF STUDY: 07/07/[address]: Brandon Laurent NP 2-DIMENSIONAL: YES M.MODE: YES DOPPLER: YES COLOR FLOW: YES TDS: PORTABLE: YES DEFINITY: BUBBLE STUDY: DIAGNOSIS: STROKE CARDIAC HISTORY: CATHERIZATION: SURGERY: PROSTHETIC VALVE: PACEMAKER: MEASUREMENTS (cm) DIASTOLIC (NORMALS) SYSTOLIC (NORMALS) IVSd 1.2 (0.6-1.2) LA Diam 2.8 (1.9-4.0) LVEF 65% LVIDd 4.1 (3.5-5.7) LVIDs 2.6 (2.0-3.5) %FS 37% LVPWd 1.2 (0.6-1.2) Ao Diam 3.1 (2.0-3.7) 2 DIMENSIONAL ASSESSMENT: RIGHT ATRIUM: NORMAL LEFT ATRIUM: NORMAL RIGHT VENTRICLE: NORMAL LEFT VENTRICLE: NORMAL TRICUSPID VALVE: NORMAL MITRAL VALVE: NORMAL PULMONIC VALVE: NORMAL AORTIC VALVE: NORMAL PERICARDIAL EFFUSION: NONE AORTIC ROOT: NORMAL LEFT VENTRICULAR WALL MOTION: NORMAL DOPPLER/COLOR FLOW: NORMAL COMMENTS: 1. NORMAL LEFT VENTRICULAR SYSTOLIC FUNCTION, EJECTION FRACTION 65%, NORMAL WALL MOTION TECHNOLOGIST: ANDREW PEREIRA
--- NOTE | 2024-07-09 12:02 | EKG ---
Test Date: 2024-07-06 Test Time: 15:34:44 Radiology Nurse: ANSON MEASUREMENT RESULTS: Intervals: Rate: 107 W[place]: 204 QRSD: 120 QT: 324 QTc: 432 [place]: P: 52 W[place]: 204 QRS: 58 T: 42 INTERPRETIVE STATEMENTS: Sinus tachycardia Otherwise normal ECG No previous ECG available for comparison Electronically Signed On 07-09-24 11:54:42 CDT by Dung Singleton
== END 2024-07-07 19:12 | disposition home or self-care (01) | DRG 74 ==
LOC: ER 14:48 → ERHOLD 17:36 → 3RD-ICU 18:10
PROVIDERS: ADMIT Hospitalist; ATTEND Internal Medicine
DX: G62.1 Alcoholic polyneuropathy (principal); F10.239 Alcohol dependence with withdrawal, unspecified; I16.0 Hypertensive urgency; I10 Essential (primary) hypertension; E78.1 Pure hyperglyceridemia; R20.2 Paresthesia of skin; R29.700 NIHSS score 0; R79.89 Other specified abnormal findings of blood chemistry; Z79.82 Long term (current) use of aspirin; Z28.310 Unvaccinated for COVID-19; Z79.899 Other long term (current) drug therapy
CPT/HCPCS: 36415; 70450; 70496; 70498; 70551; 80048; 80053; 80061; 80076; 82947; 84443; 84484; 85025; 85610; 85730; 92977; 93005; 93306; 97161; 99285; J3101; Q9967

== ENCOUNTER 2024-07-13 11:52 | Emergency (ER) | payer SELFPAY ==
[2024-07-13 12:31] LABS: Absolute Basophils 0.1 K/uL (0-0.5); Absolute Lymphocytes (CBC) 1.5 K/uL (0.7-4.9); Absolute Monocytes 0.5 K/uL (0.1-1.3); Absolute Neutrophil 3.5 K/uL (1.8-8.0); Basophils % 1.3 % (0-1.3); Eosinophils % 0.5 % (0-4.4); Hematocrit 43.5 % (39.6-49.0); Hemoglobin 14.7 g/dL (13.6-17.9); Lymphocytes % 26.2 % (15.3-44.8); MCH 30.5 pg (27.0-35.0); MCHC 33.8 g/dL (32.0-36.0); MCV 90.1 fL (80-100); Monocytes % 8.6 % (3.3-12.3); Neutrophils % 63.4 % (41.7-73.7); Platelets 203 thou/uL (152-406); RBC Red Blood Cell Count 4.83 M/uL (4.33-5.43); Red Cell Distribution Width 12.6 % (12.1-15.2)
--- NOTE | 2024-07-13 12:40 | RAD REPORT ---
Procedure: Chest Single View HISTORY: Chest pain COMPARISON: none FINDINGS: The lungs appear clear of acute infiltrate. No significant pleural effusion noted. The heart is normal size. IMPRESSION: No acute abnormality is displayed.
[2024-07-13 12:57] LABS: Albumin 4.3 g/dL (3.4-5.0); Albumin/Globulin Ratio 1.2 (1.1-1.8); Anion Gap 7.8 mEq/L (5.0-15.0); Bilirubin Direct 0.2 mg/dL (0-0.2); Bilirubin Indirect, Calculated 0.3 mg/dL (0.2-0.8); Bilirubin Total 0.5 mg/dL (0.2-1.0); Globulin 3.7 g/dL (2.3-3.5); Potassium 3.8 mEq/L (3.5-5.1); Thyroid Stimulating Hormone 0.701 uIU/mL (0.358-3.740); Troponin High Sensitivity 4.1 pg/mL (<58.9)
--- NOTE | 2024-07-13 14:11 | ER ---
Nurse's Notes [facility] Name: Hernando Harman Age: 24 yrs Sex: Male : 2000 Arrival Date: 07/13/2024 Time: 11:52 Bed 8 Private MD: Diagnosis: Chest pain, unspecified Presentation: 07/13 11:57 Chief complaint: Patient states: chest pain/tightness that started about 1hr [employer] SAL[employer]PRESENT[employer] while kc6 at work. Coronavirus screen: At this time, the client does not indicate any symptoms associated with coronavirus-19. Ebola Screen: No symptoms or risks identified at this time. Initial Sepsis Screen: Does the patient meet any 2 criteria? HR > 90 bpm. Does the patient have a suspected source of infection? No. Patient's initial sepsis screen is negative. Risk Assessment: Do you want to hurt yourself or someone else? Patient reports no desire to harm self or others. Onset of symptoms was July 13, 2024. Care prior to arrival: IV initiated. 20 GA, in the left antecubital area, Glucose check: 103. 11:57 Method Of Arrival: EMS: [facility] kc6 11:57 Acuity: HORACIO 3 kc6 Historical: - Allergies: 11:58 No Known Allergies; kc6 - PMHx: 11:58 Hypertensive disorder; Asthma; kc6 - PSHx: 11:58 None; kc6 - Immunization history:: Adult Immunizations up to date. - Infectious Disease History:: Denies. - Social history:: Smoking status: Patient denies any tobacco usage or history of. - Family history:: not pertinent. Screenin:59 [facility] ED Fall Risk Assessment (Adult) History of falling in the last 3 months, kc6 including since admission No falls in past 3 months (0 pts) Confusion or Disorientation No (0 pts) Intoxicated or Sedated No (0 pts) Impaired Gait No (0 pts) Mobility Assist Device Used No (0 pt) Altered Elimination No (0 pt) Score/Fall Risk Level 0 - 2 = Low Risk Oriented to surroundings. Abuse screen: Denies threats or abuse. Denies injuries from another. Nutritional screening: No deficits noted. Tuberculosis screening: No symptoms or risk factors identified. Assessment: 12:36 General: Appears in no apparent distress. comfortable, well groomed, well developed, kc6 Behavior is calm, cooperative, appropriate for age. Pain: Complains of pain in chest Pain does not radiate. Pain began 1 hour ago. Neuro: Level of Consciousness is awake, alert, obeys commands, Oriented to person, place, time, situation, Appropriate for age. Cardiovascular: Reports chest pain, Capillary refill < 3 seconds Rhythm is sinus rhythm. Respiratory: Airway is patent Trachea midline Respiratory effort is even, unlabored, Respiratory pattern is regular, symmetrical. GI: No signs and/or symptoms were reported involving the gastrointestinal system. : No signs and/or symptoms were reported regarding the genitourinary system. EENT: No signs and/or symptoms were reported regarding the EENT system. Derm: No signs and/or symptoms reported regarding the dermatologic system. Skin is intact, is healthy with good turgor, Skin is pink, warm \T\ dry. Musculoskeletal: No signs and/or symptoms reported regarding the musculoskeletal system. Circulation, motion, and sensation intact. Capillary refill < 3 seconds, Range of motion: intact in all extremities. 13:36 Reassessment: Patient appears in no apparent distress at this time. No changes from kc6 previously documented assessment. Patient and/or family updated on plan of care and expected duration. Pain level reassessed. Patient is alert, oriented x 3, equal unlabored respirations, skin warm/dry/pink. 14:28 Reassessment: Patient appears in no apparent distress at this time. No changes from kc6 previously documented assessment. Patient and/or family updated on plan of care and expected duration. Pain level reassessed. Patient is alert, oriented x 3, equal unlabored respirations, skin warm/dry/pink. Vital Signs: 11:57 BP 129 / 85; Pulse 93; Resp 18 S; Pulse Ox 98% on R/A; kc6 13:01 BP 125 / 85; Pulse 72; Resp 16; Pulse Ox 97% on R/A; ph 14:28 BP 145 / 99; Pulse 87; Resp 18 S; Pulse Ox 100% on R/A; kc6 Vitals: 13:01 Cardiac Rhythm Assessment Sinus rhythm. ph ED Course: 11:56 Patient arrived in ED. hb 11:56 Bill Ramires MD is Attending Physician. rt 11:57 Amy Sanchez RN is Primary Nurse. kc6 11:58 Triage completed. kc6 11:58 Arm band placed on. kc6 11:58 Maintain EMS IV. Dressing intact. Good blood return noted. Site clean \T\ dry. Gauge \T\ gillian 6 site: 20G LAC. Patient maintains SpO2 saturation greater than 95% on room air. 11:59 Patient has correct armband on for positive identification. Bed in low position. Call kc6 light in reach. Side rails up X2. lunchroom monitor on. Pulse ox on. NIBP on. Door closed. Noise minimized. Lights dimmed. Pillow given. 12:30 XRAY Chest (1 view) In Process Unspecified. EDMS 14:34 No provider procedures requiring assistance completed. IV discontinued, intact, kc6 bleeding controlled, No redness/swelling at site. Pressure dressing applied. Administered Medications: No medications were administered Medication: 13:01 VIS not applicable for this client. ph Outcome: 14:11 Discharge ordered by MD. rt 14:35 Discharged to home ambulatory, with family, kc6 14:35 Condition: good 14:35 Discharge instructions given to patient, family, Instructed on discharge instructions, follow up and referral plans. Demonstrated understanding of instructions, follow-up care, 14:35 Patient left the ED. kc6 Signatures: Dispatcher [employer] EDMS Margot Farrell RN RN ph Baxter, Heather, RN RN hb Campbell, Kaitlyn, RN RN kc6 Bill Ramires MD MD rt
--- NOTE | 2024-07-13 14:11 | EDPHYS ---
Physician Documentation [facility] Name: Hernando Harman Age: 24 yrs Sex: Male : 2000 Arrival Date: 07/13/2024 Time: 11:52 Bed 8 Private MD: ED Physician Bill Ramires HPI: 07/13 12:09 This 24 yrs old Male presents to ER via EMS with complaints of Chest Tightness.rt 12:09 Patient with recent hospitalization for paresthesias status post tPA presents to the ED rt with an acute onset of chest pressure, left arm numbness without heaviness starting about an hour prior to arrival. Patient states that the symptoms have completely resolved, no chest pains currently. Denies other acute complaints, symptoms are moderate in severity, no other aggravating or alleviating factors.. Historical: - Allergies: 11:58 No Known Allergies; kc6 - PMHx: 11:58 Hypertensive disorder; Asthma; kc6 - PSHx: 11:58 None; kc6 - Immunization history:: Adult Immunizations up to date. - Infectious Disease History:: Denies. - Social history:: Smoking status: Patient denies any tobacco usage or history of. - Family history:: not pertinent. ROS: 12:09 Constitutional: Negative for fever, chills, and weight loss, Respiratory: Negative for rt shortness of breath, cough, wheezing, and pleuritic chest pain, Abdomen/GI: Negative for abdominal pain, nausea, vomiting, diarrhea, and constipation, MS/Extremity: Negative for injury and deformity, Skin: Negative for injury, rash, and discoloration, 12:09 Cardiovascular: Positive for chest pain, Negative for edema, Exam: 12:09 Constitutional: This is a well developed, well nourished patient who is awake, alert, rt and in no acute distress. Head/Face: Normocephalic, atraumatic. Chest/axilla: Normal chest wall appearance and motion. Nontender with no deformity. No lesions are appreciated. Cardiovascular: Regular rate and rhythm with a normal S1 and S2. No gallops, murmurs, or rubs. Normal PMI, no JVD. No pulse deficits. Respiratory: Lungs have equal breath sounds bilaterally, clear to auscultation and percussion. No rales, rhonchi or wheezes noted. No increased work of breathing, no retractions or nasal flaring. Abdomen/GI: Soft, non-tender, with normal bowel sounds. No distension or tympany. No guarding or rebound. No evidence of tenderness throughout. Skin: Warm, dry with normal turgor. Normal color with no rashes, no lesions, and no evidence of cellulitis. MS/ Extremity: Pulses equal, no cyanosis. Neurovascular intact. Full, normal range of motion. Neuro: Awake and alert, GCS 15, oriented to person, place, time, and situation. Cranial nerves II-XII grossly intact. Motor strength 5/5 in all extremities. Sensory grossly intact. Cerebellar exam normal. Normal gait. 12:39 ECG was reviewed by the Attending Physician. rt Vital Signs: 11:57 BP 129 / 85; Pulse 93; Resp 18 S; Pulse Ox 98% on R/A; kc6 13:01 BP 125 / 85; Pulse 72; Resp 16; Pulse Ox 97% on R/A; ph 14:28 BP 145 / 99; Pulse 87; Resp 18 S; Pulse Ox 100% on R/A; kc6 MDM: 11:56 Medical Screening Exam initiated rt 16:47 Differential diagnosis: Atypical chest pain, ACS, EKG. HEART Score: History: Slightly rt Suspicious (0), ECG: Normal (0), Age: < or = 45 years (0), Risk Factors: No Risk Factors Known (0), Troponin: < or = 1 x Normal Limit (0), Total Score = 0. Data reviewed: vital signs, nurses notes, lab test result(s), EKG, radiologic studies. Consideration of Admission/Observation Escalation of care including admission/observation considered. Low heart score, unremarkable workup, given chronicity of symptoms, once of enzymes is sufficient to rule out acute coronary syndrome, stable for outpatient care.. Independent interpretation of the following test(s) in the Emergency Department X-Ray: My interpretation is No consolidation seen on my interpretation of x-ray images. Test considered but Not performed: Other Details Low suspicion for pulmonary embolus, CT angiogram not indicated. Care significantly affected by the following chronic conditions: Hypertension. Counseling: I had a detailed discussion with the patient and/or guardian regarding the historical points, exam findings, and any diagnostic results supporting the discharge/admit diagnosis, lab results, radiology results, the need for outpatient follow up, to return to the emergency department if symptoms worsen or persist or if there are any questions or concerns that arise at home. Response to treatment: the patient's symptoms have resolved after treatment, the patient's pain is gone. 07/13 11:56 Order name: Basic Metabolic Panel; Complete Time: 13:14 rt 07/13 11:56 Order name: CBC with Diff rt 07/13 11:56 Order name: LFT's; Complete Time: 13:14 rt 07/13 11:56 Order name: Troponin HS; Complete Time: 13:14 rt 07/13 11:56 Order name: TSH; Complete Time: 13:14 rt 07/13 11:56 Order name: XRAY Chest (1 view); Complete Time: 12:45 rt 07/13 11:56 Order name: EKG; Complete Time: 11:57 rt 07/13 11:56 Order name: Cardiac monitoring; Complete Time: 11:59 rt 07/13 11:56 Order name: EKG - Nurse/Tech; Complete Time: 12:21 rt 07/13 11:56 Order name: IV Saline Lock; Complete Time: 11:59 rt 07/13 11:56 Order name: Labs collected and sent; Complete Time: 12:21 rt 07/13 11:56 Order name: O2 Per Protocol; Complete Time: 11:59 rt 07/13 11:56 Order name: O2 Sat Monitoring; Complete Time: 11:59 rt EC:39 Rate is 78 beats/min. Rhythm is regular, Normal Sinus Rhythm with No ectopy. QRS [place] rt is Normal. MT interval is normal. QRS interval is normal. QT interval is normal. No Q waves. T waves are Normal. No ST changes noted. Interpreted by me. Administered Medications: No medications were administered Disposition Summary: 07/13/24 14:11 Discharge Ordered Notes: Location: Home rt Problem: new rt Symptoms: have improved rt Condition: Stable rt Diagnosis - Chest pain, unspecified rt Followup: rt - With: Private Physician - When: 2 - 3 days - Reason: Discharge Instructions: - Discharge Summary Sheet rt - Nonspecific Chest Pain, Adult rt Forms: - Medication Reconciliation Form rt - Antibiotic Education rt - Prescription Opioid Use rt - Patient Portal Instructions rt - Leadership Thank You Letter rt Signatures: Dispatcher [employer] Amy Bellamy RN RN kc6 Bill Ramires MD MD rt Corrections: (The following items were deleted from the chart) 11: 11:57 BASIC METABOLIC PANEL+C.LAB.BRZ ordered. EDMS EDMS 11 11:57 CBC+H.LAB.BRZ ordered. EDMS EDMS : 11:57 HEPATIC FUNCTION+C.LAB.BRZ ordered. EDMS EDMS 11:57 Troponin High Sensitivity+C.LAB.BRZ ordered. EDMS EDMS :57 11:57 THYROID STIMULAT HORMONE+C.LAB.BRZ ordered. EDMS EDMS
[2024-07-13 16:09] LABS: Blood Morphology Comment NOT SEEN (NOT SEEN); Platelet Estimate ADEQ; White Blood Cell Scan OK (OK)
[2024-07-13 16:34] VITALS: BP 145/99; O2SAT 100
--- NOTE | 2024-07-16 12:24 | EKG ---
Test Date: 2024-07-13 Test Time: 12:15:33 Supervisor [employer]: BRITANY MEASUREMENT RESULTS: Intervals: Rate: 78 MA: 184 QRSD: 118 QT: 346 QTc: 394 [place]: P: 37 MA: 184 QRS: 85 T: 44 INTERPRETIVE STATEMENTS: Normal sinus rhythm Normal ECG Compared to ECG 07/06/2024 15:34:44 Sinus tachycardia no longer present Electronically Signed On 07-16-24 12:18:22 CDT by Dung Singleton
== END 2024-07-13 14:35 | disposition home or self-care (01) ==
LOC: ER 11:52
DX: R07.89 Other chest pain (principal); I10 Essential (primary) hypertension
CPT/HCPCS: 36415; 71045; 80048; 80076; 84443; 84484; 85025; 93005; 99284